=== PATIENT | male | born 1980 | race African-American/Black ===

== ENCOUNTER 2018-12-20 08:08 | Emergency (ER) | payer OTHER ==
[~2018-12-20] VITALS: Ht 180.3 cm; Wt 108.9 kg
[~2018-12-20 08:08] MED LIST: ZANTAC 150MG T150 MG PO
[2018-12-20 08:35] LABS: MCH 29.7 pg (26.0-34.0); MCHC 34.5 g/dL (28.0-37.0); NUCLEATED RBCS 0 /100WBC
[2018-12-20 08:37] LABS: ABSOLUTE BASOPHILS 0.1 thou/uL (0.0-0.2); ABSOLUTE EOSINOPHILS 0.1 thou/uL (0.0-0.7); ABSOLUTE LYMPHOCYTES 2.4 thou/uL (0.8-5.3); ABSOLUTE MONOCYTES 0.7 thou/uL (0.0-1.2); ABSOLUTE NEUTROPHILS 3.9 thou/uL (1.6-8.1); BASOPHILS 0.9 %; EOSINOPHILS 1.7 %; HEMATOCRIT 50.6 % (42.0-52.0); HEMOGLOBIN 17.5 gm/dL (14.0-18.0); LYMPHOCYTES 33.3 %; MCV 85.9 fL (80.0-100.0); MONOCYTES 9.5 %; MPV 8.3 fl. (7.2-11.1); PLATELET COUNT* 262 thou/uL (150-400); POLYS 54.6 %; WBC 7.1 thou/uL (4.0-11.0)
[2018-12-20 08:44] LABS: CALCIUM 9.5 mg/dL (8.5-10.1); CREATININE 1.3 mg/dL (0.6-1.3); POTASSIUM 4.1 mmol/L (3.5-5.1); TOTAL BILIRUBIN 0.4 mg/dL (<0.1-1.0); TOTAL PROTEIN 8.2 g/dL (6.4-8.2)
[2018-12-20] MEDS ORDERED: ZOFRAN4 MG PO (09:11)
[2018-12-20 09:46] VITALS: BP 147/80
== END 2018-12-20 09:47 | disposition home or self-care (01) ==
LOC: M.ERS 08:08
PROVIDERS: Emergency Medicine
DX: K52.9 Noninfective gastroenteritis and colitis, unspecified (principal); F17.210 Nicotine dependence, cigarettes, uncomplicated; K21.9 Gastro-esophageal reflux disease without esophagitis; Z88.6 Allergy status to analgesic agent

== ENCOUNTER 2020-02-02 09:22 | Emergency (ER) | payer OTHER ==
[~2020-02-02] VITALS: Ht 180.3 cm; Wt 108.9 kg
[~2020-02-02 09:22] MED LIST changes: +ZOFRAN4 MG PO
[2020-02-02 10:08] LABS: URINE BILIRUBIN NEGATIVE (Negative); URINE BLOOD 2+ (Negative); URINE CLARITY CLEAR; URINE COLOR YELLOW; URINE GLUCOSE-RANDOM NEGATIVE (Negative); URINE KETONES NEGATIVE (Negative); URINE LEUKOCYTES-REFLEX NEGATIVE (Negative); URINE NITRITE-REFLEX NEGATIVE (Negative); URINE PROTEIN TRACE (Negative); URINE SPECIFIC GRAVITY 1.025 (1.005-1.030); URINE UROBILINOGEN 0.2 E.U./dl (0.2-1.0)
[2020-02-02 10:17] LABS: SQUAMOUS 4-10 Moderate /LPF (0-3)
[2020-02-02 10:18] LABS: BACTERIA-REFLEX >30 Many /HPF (None Seen); URINE RBC 3-10 Few /HPF (0-2); URINE WBC-REFLEX None Seen /HPF (0-5)
[2020-02-02 10:19] LABS: CASTS None Seen /LPF (None Seen); CRYSTALS None Seen /LPF (None Seen); MUCUS >6 Heavy strn/LPF (None Seen)
[2020-02-02 10:34] LABS: ABSOLUTE BASOPHILS 0.2 thou/uL (0.0-0.2); ABSOLUTE EOSINOPHILS 0.1 thou/uL (0.0-0.7); ABSOLUTE LYMPHOCYTES 2.1 thou/uL (0.8-5.3); ABSOLUTE MONOCYTES 0.5 thou/uL (0.0-1.2); ABSOLUTE NEUTROPHILS 3.1 thou/uL (1.6-8.1); BASOPHILS 2.6 %; EOSINOPHILS 1.9 %; HEMATOCRIT 46.9 % (42.0-52.0); HEMOGLOBIN 16.3 gm/dL (14.0-18.0); LYMPHOCYTES 35.3 %; MCH 30.2 pg (26.0-34.0); MCHC 34.7 g/dL (28.0-37.0); MCV 86.9 fL (80.0-100.0); MPV 8.4 fl. (7.2-11.1); NUCLEATED RBCS 0 /100WBC; PLATELET COUNT* 223 thou/uL (150-400); POLYS 52.2 %; RBC 5.39 mil/uL (4.50-6.00); RDW-CV 13.2 % (10.5-14.5)
[2020-02-02 10:45] LABS: CALCIUM 8.8 mg/dL (8.5-10.1); CREATININE 1.1 mg/dL (0.6-1.3)
[2020-02-02 10:50] LABS: ALBUMIN 3.7 g/dL (3.4-5.0); TOTAL BILIRUBIN 0.4 mg/dL (<0.1-1.0); TOTAL PROTEIN 7.4 g/dL (6.4-8.2)
[2020-02-02 12:12] VITALS: BP 131/75
== END 2020-02-02 12:12 | disposition home or self-care (01) ==
LOC: M.ERS 09:22
PROVIDERS: Personal Emergency Response Attendant
DX: N39.0 Urinary tract infection, site not specified (principal); E86.0 Dehydration; K21.9 Gastro-esophageal reflux disease without esophagitis; F17.210 Nicotine dependence, cigarettes, uncomplicated; Z88.6 Allergy status to analgesic agent

== ENCOUNTER 2020-04-13 04:10 | Emergency (ER) | payer OTHER ==
[~2020-04-13] VITALS: Ht 182.9 cm; Wt 104.3 kg
[2020-04-13 04:34] LABS: ABSOLUTE BASOPHILS 0.1 thou/uL (0.0-0.2); ABSOLUTE EOSINOPHILS 0.1 thou/uL (0.0-0.7); ABSOLUTE LYMPHOCYTES 2.7 thou/uL (0.8-5.3); ABSOLUTE MONOCYTES 0.7 thou/uL (0.0-1.2); ABSOLUTE NEUTROPHILS 4.8 thou/uL (1.6-8.1); BASOPHILS 1.5 %; EOSINOPHILS 1.3 %; HEMATOCRIT 48.6 % (42.0-52.0); HEMOGLOBIN 17.1 gm/dL (14.0-18.0); LYMPHOCYTES 32.1 %; MCH 30.6 pg (26.0-34.0); MCHC 35.1 g/dL (28.0-37.0); MCV 87.3 fL (80.0-100.0); MONOCYTES 7.8 %; MPV 7.9 fl. (7.2-11.1); NUCLEATED RBCS 0 /100WBC; PLATELET COUNT* 263 thou/uL (150-400); POLYS 57.3 %; RBC 5.57 mil/uL (4.50-6.00); RDW-CV 13.3 % (10.5-14.5); WBC 8.3 thou/uL (4.0-11.0)
[2020-04-13 05:06] LABS: ALBUMIN 4.1 g/dL (3.4-5.0); CREATININE 1.2 mg/dL (0.6-1.3); POTASSIUM 4.1 mmol/L (3.5-5.1); TOTAL BILIRUBIN 0.5 mg/dL (<0.1-1.0); TOTAL PROTEIN 8.1 g/dL (6.4-8.2)
[2020-04-13 05:23] LABS: URINE BILIRUBIN NEGATIVE (Negative); URINE BLOOD TRACE (Negative); URINE CLARITY CLEAR; URINE COLOR YELLOW; URINE GLUCOSE-RANDOM NEGATIVE (Negative); URINE KETONES NEGATIVE (Negative); URINE LEUKOCYTES-REFLEX NEGATIVE (Negative); URINE NITRITE-REFLEX NEGATIVE (Negative); URINE PROTEIN NEGATIVE (Negative); URINE SPECIFIC GRAVITY <= 1.005 (1.005-1.030); URINE UROBILINOGEN 0.2 E.U./dl (0.2-1.0)
[2020-04-13] MEDS ORDERED: ZOFRAN ODT4 MG PO (06:31)
[2020-04-13] MEDS ORDERED: CARAFATE 1 GM TA1 GM PO (06:31)
[2020-04-13] MEDS ORDERED: HYDROCODON-ACE1 EAC7 PO (06:31)
[2020-04-13 06:51] VITALS: BP 120/74
== END 2020-04-13 06:52 | disposition home or self-care (01) ==
LOC: M.ERS 04:10
PROVIDERS: Personal Emergency Response Attendant
DX: R11.2 Nausea with vomiting, unspecified (principal); K21.9 Gastro-esophageal reflux disease without esophagitis; F17.210 Nicotine dependence, cigarettes, uncomplicated; Z88.6 Allergy status to analgesic agent

== ENCOUNTER 2020-04-15 11:29 | Emergency (ER) | payer OTHER ==
[~2020-04-15] VITALS: Ht 182.9 cm; Wt 111.6 kg
[~2020-04-15 11:29] MED LIST changes: +CARAFATE 1 GM TA1 GM PO; +HYDROCODON-ACE1 EAC7 PO; +ZOFRAN ODT4 MG PO
[2020-04-15 12:57] LABS: ABSOLUTE BASOPHILS 0.1 thou/uL (0.0-0.2); ABSOLUTE EOSINOPHILS 0.1 thou/uL (0.0-0.7); ABSOLUTE LYMPHOCYTES 2.3 thou/uL (0.8-5.3); ABSOLUTE MONOCYTES 0.6 thou/uL (0.0-1.2); ABSOLUTE NEUTROPHILS 3.6 thou/uL (1.6-8.1); BASOPHILS 1.6 %; EOSINOPHILS 2.1 %; HEMATOCRIT 47.8 % (42.0-52.0); HEMOGLOBIN 16.9 gm/dL (14.0-18.0); LYMPHOCYTES 34.6 %; MCH 30.9 pg (26.0-34.0); MCHC 35.3 g/dL (28.0-37.0); MCV 87.5 fL (80.0-100.0); MONOCYTES 8.4 %; MPV 8.1 fl. (7.2-11.1); NUCLEATED RBCS 0 /100WBC; PLATELET COUNT* 237 thou/uL (150-400); POLYS 53.3 %; RBC 5.47 mil/uL (4.50-6.00); RDW-CV 13.4 % (10.5-14.5); WBC 6.7 thou/uL (4.0-11.0)
[2020-04-15 13:08] LABS: CALCIUM 8.8 mg/dL (8.5-10.1); CREATININE 1.1 mg/dL (0.6-1.3); POTASSIUM 4.2 mmol/L (3.5-5.1)
[2020-04-15 13:13] LABS: TOTAL BILIRUBIN 0.5 mg/dL (<0.1-1.0)
[2020-04-15 13:45] VITALS: BP 150/76
--- NOTE | 2020-04-16 19:18 | EKG ---
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[facility] : 1980 Requested By: Elver Handley Order Number: [id number] MD: Maxwell Farias Measurements Intervals [place] Rate: 65 P: 20 NM: 190 QRS: -28 QRSD: 95 T: 15 QT: 356 QTc: 371 Interpretive Statements Sinus rhythm Borderline left axis deviation ST elev, probable normal early repol pattern No previous ECG available for comparison Electronically Signed On 04-16-2020 17:38:12 CDT by Maxwell Farias [email or web address] <ELECTRONICALLY SIGNED> By: Maxwell Farias MD, FAC 04/16/20 1738 1242 1242 Maxwell Farias MD, [facility] /EPI
== END 2020-04-15 13:46 | disposition home or self-care (01) ==
LOC: M.ERS 11:29
PROVIDERS: Physician Assistant
DX: R53.1 Weakness (principal); R11.10 Vomiting, unspecified; F17.210 Nicotine dependence, cigarettes, uncomplicated; K21.9 Gastro-esophageal reflux disease without esophagitis; Z88.6 Allergy status to analgesic agent

== ENCOUNTER 2020-06-25 17:02 | Emergency (ER) | payer OTHER ==
[~2020-06-25] VITALS: Ht 182.9 cm; Wt 113.4 kg
[2020-06-25 18:18] LABS: ABSOLUTE BASOPHILS 0.1 thou/uL (0.0-0.2); ABSOLUTE EOSINOPHILS 0.2 thou/uL (0.0-0.7); ABSOLUTE LYMPHOCYTES 2.5 thou/uL (0.8-5.3); ABSOLUTE MONOCYTES 0.6 thou/uL (0.0-1.2); ABSOLUTE NEUTROPHILS 4.4 thou/uL (1.6-8.1); BASOPHILS 0.9 %; EOSINOPHILS 2.4 %; HEMATOCRIT 47.7 % (42.0-52.0); HEMOGLOBIN 16.8 gm/dL (14.0-18.0); LYMPHOCYTES 32.5 %; MCH 30.8 pg (26.0-34.0); MCHC 35.3 g/dL (28.0-37.0); MCV 87.3 fL (80.0-100.0); MONOCYTES 7.4 %; MPV 8.4 fl. (7.2-11.1); NUCLEATED RBCS 0 /100WBC; PLATELET COUNT* 242 thou/uL (150-400); POLYS 56.8 %; RBC 5.46 mil/uL (4.50-6.00); RDW-CV 13.6 % (10.5-14.5); WBC 7.7 thou/uL (4.0-11.0)
[2020-06-25 18:27] LABS: APTT 30.3 Seconds (25.0-31.3); PROTIME 10.7 Seconds (9.20-11.50)
[2020-06-25 18:41] LABS: CALCIUM 9.3 mg/dL (8.5-10.1); CREATININE 1.4 mg/dL (0.6-1.3); POTASSIUM 3.6 mmol/L (3.5-5.1)
[2020-06-25 18:42] LABS: URINE BILIRUBIN NEGATIVE (Negative); URINE BLOOD 1+ (Negative); URINE CLARITY CLEAR; URINE COLOR YELLOW; URINE GLUCOSE-RANDOM NEGATIVE (Negative); URINE KETONES NEGATIVE (Negative); URINE LEUKOCYTES-REFLEX NEGATIVE (Negative); URINE NITRITE-REFLEX NEGATIVE (Negative); URINE PROTEIN NEGATIVE (Negative); URINE UROBILINOGEN 0.2 E.U./dl (0.2-1.0)
[2020-06-25 18:45] LABS: ALBUMIN 3.8 g/dL (3.4-5.0); TOTAL BILIRUBIN 0.5 mg/dL (<0.1-1.0); TOTAL PROTEIN 7.5 g/dL (6.4-8.2)
[2020-06-25 18:56] LABS: CRYSTALS None Seen /LPF (None Seen); SQUAMOUS 4-10 Moderate /LPF (0-3); URINE RBC 0-2 Rare /HPF (0-2); URINE WBC-REFLEX 0-5 Rare /HPF (0-5)
[2020-06-25 18:57] LABS: BACTERIA-REFLEX None Seen /HPF (None Seen); CASTS None Seen /LPF (None Seen); MUCUS None Seen strn/LPF (None Seen)
[2020-06-25 20:02] VITALS: BP 146/103
--- NOTE | 2020-06-26 15:20 | EKG ---
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 : 1980 Requested By: Thee Carlisle Order Number: [id number] MD: Bossman Robles Measurements Intervals [place] Rate: 76 P: 56 MA: 197 QRS: -36 QRSD: 96 T: 23 QT: 363 QTc: 409 Interpretive Statements Sinus rhythm Left axis deviation Abnormal R-wave progression, late transition Compared to ECG 04/15/2020 12:42:11 No significant changes Electronically Signed On 06-26-2020 15:19:47 CDT by Bossman Robles [email or web address] <ELECTRONICALLY SIGNED> By: Bossman Robles MD, [facility] 06/26/20 1519 1814 1814 Bossman Robles MD, [facility] /EPI
== END 2020-06-25 20:02 | disposition home or self-care (01) ==
LOC: M.ERS 17:02
PROVIDERS: Family Medicine
DX: R53.1 Weakness (principal); K21.9 Gastro-esophageal reflux disease without esophagitis; F17.210 Nicotine dependence, cigarettes, uncomplicated; Z88.6 Allergy status to analgesic agent

== ENCOUNTER 2020-06-27 12:05 | Emergency (ER) | payer OTHER ==
[~2020-06-27] VITALS: Ht 182.9 cm; Wt 113.4 kg
[2020-06-27] MEDS ORDERED: PRILOSEC OTC20 MG PO (13:24)
[2020-06-27 13:46] LABS: ABSOLUTE BASOPHILS 0.1 thou/uL (0.0-0.2); ABSOLUTE EOSINOPHILS 0.1 thou/uL (0.0-0.7); ABSOLUTE LYMPHOCYTES 2.4 thou/uL (0.8-5.3); ABSOLUTE MONOCYTES 0.7 thou/uL (0.0-1.2); ABSOLUTE NEUTROPHILS 3.9 thou/uL (1.6-8.1); BASOPHILS 1.5 %; EOSINOPHILS 1.6 %; HEMATOCRIT 52.2 % (42.0-52.0); HEMOGLOBIN 18.4 gm/dL (14.0-18.0); LYMPHOCYTES 33.2 %; MCH 30.9 pg (26.0-34.0); MCHC 35.3 g/dL (28.0-37.0); MCV 87.6 fL (80.0-100.0); MONOCYTES 9.5 %; MPV 7.8 fl. (7.2-11.1); NUCLEATED RBCS 0 /100WBC; PLATELET COUNT* 267 thou/uL (150-400); POLYS 54.2 %; RBC 5.97 mil/uL (4.50-6.00); RDW-CV 13.3 % (10.5-14.5); WBC 7.2 thou/uL (4.0-11.0)
[2020-06-27 13:50] LABS: CALCIUM 9.3 mg/dL (8.5-10.1); CREATININE 1.4 mg/dL (0.6-1.3)
[2020-06-27 13:55] LABS: ALBUMIN 4.2 g/dL (3.4-5.0); TOTAL BILIRUBIN 0.5 mg/dL (<0.1-1.0); TOTAL PROTEIN 8.5 g/dL (6.4-8.2)
[2020-06-27 14:54] LABS: URINE BILIRUBIN NEGATIVE (Negative); URINE BLOOD TRACE (Negative); URINE CLARITY CLEAR; URINE COLOR YELLOW; URINE GLUCOSE-RANDOM NEGATIVE (Negative); URINE KETONES NEGATIVE (Negative); URINE LEUKOCYTES-REFLEX NEGATIVE (Negative); URINE NITRITE-REFLEX NEGATIVE (Negative); URINE PROTEIN NEGATIVE (Negative); URINE UROBILINOGEN 0.2 E.U./dl (0.2-1.0)
[2020-06-27] MEDS ORDERED: ZPAK PO (15:46)
[2020-06-27] MEDS ORDERED: ONDANSETRON HCL4 M2 PO (15:46)
[2020-06-27 16:09] VITALS: BP 130/70
--- NOTE | 2020-06-28 09:33 | EKG ---
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: [employer] : 1980 Requested By: Kelsea Barber Order Number: [id number] MD: Bossman Robles Measurements Intervals [place] Rate: 84 P: 0 NV: 187 QRS: -38 QRSD: 91 T: 21 QT: 332 QTc: 393 Interpretive Statements Sinus rhythm Left axis deviation Abnormal R-wave progression, late transition ST elevation suggests early repolarization Compared to ECG 06/25/2020 18:14:00 No significant change Electronically Signed On 06-28-2020 9:33:26 CDT by Bossman Robles [email or web address] <ELECTRONICALLY SIGNED> By: Bossman Robles MD, [facility] 06/28/20 0933 1336 1336 Bossman Robles MD, [facility] /EPI
== END 2020-06-27 16:10 | disposition home or self-care (01) ==
LOC: M.ERS 12:05
PROVIDERS: Nurse Practitioner Family
DX: R11.2 Nausea with vomiting, unspecified (principal); J06.9 Acute upper respiratory infection, unspecified; Z20.828 Contact with and (suspected) exposure to other viral communicable diseases; K21.9 Gastro-esophageal reflux disease without esophagitis; F17.210 Nicotine dependence, cigarettes, uncomplicated; Z88.6 Allergy status to analgesic agent

== ENCOUNTER 2020-06-30 20:27 | Emergency (ER) | payer OTHER ==
[~2020-06-30] VITALS: Ht 182.9 cm; Wt 113.4 kg
[~2020-06-30 20:27] MED LIST changes: +ONDANSETRON HCL4 M2 PO; +PRILOSEC OTC20 MG PO; +ZPAK PO
[2020-06-30 21:28] LABS: URINE BILIRUBIN NEGATIVE (Negative); URINE BLOOD 2+ (Negative); URINE COLOR YELLOW; URINE GLUCOSE-RANDOM NEGATIVE (Negative); URINE KETONES NEGATIVE (Negative); URINE LEUKOCYTES-REFLEX NEGATIVE (Negative); URINE NITRITE-REFLEX NEGATIVE (Negative); URINE PROTEIN NEGATIVE (Negative)
[2020-06-30 21:29] LABS: URINE CLARITY HAZY
[2020-06-30 21:34] LABS: ABSOLUTE BASOPHILS 0.1 thou/uL (0.0-0.2); ABSOLUTE EOSINOPHILS 0.1 thou/uL (0.0-0.7); ABSOLUTE LYMPHOCYTES 2.5 thou/uL (0.8-5.3); ABSOLUTE MONOCYTES 0.6 thou/uL (0.0-1.2); ABSOLUTE NEUTROPHILS 4.3 thou/uL (1.6-8.1); BASOPHILS 1.4 %; EOSINOPHILS 1.8 %; HEMATOCRIT 48.2 % (42.0-52.0); HEMOGLOBIN 16.8 gm/dL (14.0-18.0); LYMPHOCYTES 32.6 %; MCH 30.5 pg (26.0-34.0); MCHC 34.9 g/dL (28.0-37.0); MCV 87.3 fL (80.0-100.0); MONOCYTES 7.8 %; MPV 7.9 fl. (7.2-11.1); NUCLEATED RBCS 0 /100WBC; PLATELET COUNT* 248 thou/uL (150-400); POLYS 56.4 %; RBC 5.52 mil/uL (4.50-6.00); RDW-CV 13.4 % (10.5-14.5); WBC 7.6 thou/uL (4.0-11.0)
[2020-06-30 21:36] LABS: BACTERIA-REFLEX None Seen /HPF (None Seen); CASTS None Seen /LPF (None Seen); CRYSTALS None Seen /LPF (None Seen); MUCUS >6 Heavy strn/LPF (None Seen); SQUAMOUS 0-3 Few /LPF (0-3); URINE RBC 3-10 Few /HPF (0-2); URINE WBC-REFLEX None Seen /HPF (0-5)
[2020-06-30 21:41] LABS: CALCIUM 8.7 mg/dL (8.5-10.1); CREATININE 1.4 mg/dL (0.6-1.3); POTASSIUM 3.7 mmol/L (3.5-5.1)
[2020-06-30 21:45] LABS: ALBUMIN 4.3 g/dL (3.4-5.0); TOTAL BILIRUBIN 0.6 mg/dL (<0.1-1.0); TOTAL PROTEIN 7.8 g/dL (6.4-8.2)
[2020-06-30] MEDS ORDERED: NORCO 5-325 TA1 EAC2 PO (22:32)
[2020-06-30] MEDS ORDERED: ZOFRAN ODT4 MG SUBLING (22:32)
[2020-06-30 22:45] VITALS: BP 130/74
--- NOTE | 2020-07-01 10:57 | EKG ---
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[facility] : 1980 Requested By: Thee Carlisle Order Number: [id number] MD: Mac Alejandra Measurements Intervals [place] Rate: 76 P: 33 AL: 184 QRS: -31 QRSD: 100 T: 12 QT: 357 QTc: 402 Interpretive Statements Sinus rhythm Left axis deviation Abnormal R-wave progression, late transition ST elev, probable normal early repol pattern Compared to ECG 06/27/2020 13:36:33 ST (T wave) deviation still present Electronically Signed On 07-01-2020 10:57:19 CDT by Mac Alejandra [email or web address] <ELECTRONICALLY SIGNED> By: Mac Alejandra MD, [facility] 07/01/20 1057 04 04 Mac Alejandra MD, [facility] /EPI
== END 2020-06-30 22:46 | disposition home or self-care (01) ==
LOC: M.ERS 20:27
PROVIDERS: Family Medicine
DX: R11.2 Nausea with vomiting, unspecified (principal); R10.84 Generalized abdominal pain; K21.9 Gastro-esophageal reflux disease without esophagitis; F17.210 Nicotine dependence, cigarettes, uncomplicated; Z88.6 Allergy status to analgesic agent

== ENCOUNTER 2021-03-06 20:37 | Emergency (ER) | payer OTHER ==
[~2021-03-06] VITALS: Ht 180.3 cm; Wt 113.4 kg
[~2021-03-06 20:37] MED LIST changes: +NORCO 5-325 TA1 EAC2 PO; +ZOFRAN ODT4 MG SUBLING
[2021-03-06 21:02] LABS: ABSOLUTE BASOPHILS 0.1 thou/uL (0.0-0.2); ABSOLUTE EOSINOPHILS 0.1 thou/uL (0.0-0.7); ABSOLUTE LYMPHOCYTES 2.5 thou/uL (0.8-5.3); ABSOLUTE MONOCYTES 0.6 thou/uL (0.0-1.2); ABSOLUTE NEUTROPHILS 3.7 thou/uL (1.6-8.1); EOSINOPHILS 1.7 %; HEMATOCRIT 47.2 % (42.0-52.0); HEMOGLOBIN 16.5 gm/dL (14.0-18.0); LYMPHOCYTES 35.3 %; MCH 30.5 pg (26.0-34.0); MCV 87.2 fL (80.0-100.0); MPV 7.7 fl. (7.2-11.1); NUCLEATED RBCS 0 /100WBC; PLATELET COUNT* 253 thou/uL (150-400); RBC 5.41 mil/uL (4.50-6.00); RDW-CV 13.6 % (10.5-14.5); WBC 7.1 thou/uL (4.0-11.0)
[2021-03-06 21:16] LABS: CALCIUM 9.2 mg/dL (8.5-10.1); CREATININE 1.2 mg/dL (0.6-1.3); POTASSIUM 3.7 mmol/L (3.5-5.1)
[2021-03-06 21:20] LABS: ALBUMIN 4.1 g/dL (3.4-5.0); MAGNESIUM 1.9 mg/dL (1.8-2.4); TOTAL BILIRUBIN 0.5 mg/dL (<0.1-1.0); TOTAL PROTEIN 8.3 g/dL (6.4-8.2)
[2021-03-06] MEDS ORDERED: ZOFRAN ODT4 MG PO (22:25)
[2021-03-06 22:34] VITALS: BP 134/89
== END 2021-03-06 22:34 | disposition home or self-care (01) ==
LOC: M.ERS 20:37
PROVIDERS: Emergency Medicine
DX: R11.2 Nausea with vomiting, unspecified (principal); Z20.822 Contact with and (suspected) exposure to COVID-19; K21.9 Gastro-esophageal reflux disease without esophagitis; R19.7 Diarrhea, unspecified; F17.210 Nicotine dependence, cigarettes, uncomplicated; Z88.6 Allergy status to analgesic agent